=== PATIENT | male | born 1945 | race Caucasian/White ===

== ENCOUNTER 2018-08-09 10:33 | Emergency (ER) | payer MEDICARE, OTHER ==
[2018-08-09] MEDS: TETRACAINE 0.5% OPHTH SOLN 4ML OD (11:24)
[2018-08-09] MEDS ORDERED: FLUORESCEIN OPHTH 1 MG STRIP As Ordered (11:33)
[2018-08-09] MEDS: FLUORESCEIN OPHTH 1 MG STRIP OD (11:34)
== END 2018-08-09 12:25 | disposition home or self-care (01) ==
LOC: M ED 10:33
DX: S05.01XA Injury of conjunctiva and corneal abrasion without foreign body, right eye, initial encounter (principal); X58.XXXA Exposure to other specified factors, initial encounter; Y92.9 Unspecified place or not applicable; Y93.9 Activity, unspecified; Y99.9 Unspecified external cause status; Z79.899 Other long term (current) drug therapy
CPT/HCPCS: 99283

== ENCOUNTER → 2024-08-18 | Outpatient (REF) | payer MEDICARE ==
[~2024-08-18] MED LIST: AMLO1TAB24; ATOR40TA75; ERYTOIN8 OD
[2024-08-18 21:08] LABS: AMORPHOUS SEDIMENT SMALL (NEGATIVE); APPEARANCE, URINE CLOUDY (CLEAR); BACTERIA, URINE AUTO NEGATIVE (NEGATIVE); BILIRUBIN, URINE AUTO NEGATIVE (NEGATIVE); BLOOD, URINE BLOOD NEGATIVE (NEGATIVE); COLOR, URINE YELLOW (YELLOW); GLUCOSE, URINE (UA) AUTO NEGATIVE (NEGATIVE); KETONE, URINE AUTO NEGATIVE (NEGATIVE); LEUKOCYTE ESTERASE, URINE AUTO 3+ (NEGATIVE); MUCUS, URINE SMALL (NEGATIVE); NITRITE, URINE AUTO POSITIVE (NEGATIVE); PROTEIN, URINE AUTO 1+ mg/dL (NEGATIVE); RBC, URINE AUTO 6 /HPF (0-3); SPECIFIC GRAVITY URINE AUTO 1.018 (1.002-1.035); SQUAMOUS EPITHELIAL CELL UR AU 0 /HPF (0-6); UROBILINOGEN, URINE AUTO 0.2 mg/dL (0.0-2.0); WBC, URINE AUTO 97 /HPF (0-3)
== END ==
LOC: M LAB REF 20:30
PROVIDERS: ATTEND Physician Assistant Medical
DX: N39.0 Urinary tract infection, site not specified (principal)

== ENCOUNTER 2025-06-02 10:52 | Emergency (ER) | payer MEDICARE ==
[~2025-06-02] VITALS: Ht 177.8 cm; Wt 81.6 kg
[2025-06-02] MEDS ORDERED: ISOVUE-370 76% 100 ML VIAL As Ordered ONE (11:11)
[2025-06-02 11:23] LABS: BASO # 0.1 10^3/uL (0.0-0.2); BASO % 0.5 % (0.0-1.0); EOS # 0.5 10^3/uL (0.0-0.5); EOS % 3.7 % (0.0-3.0); LYMPH # 0.9 10^3/uL (1.5-5.0); LYMPH % 6.9 % (24.0-44.0); MONO # 1.0 10^3/uL (0.0-0.8); MONO % 7.6 % (2.0-8.0); NEUTROPHILS # 10.5 10^3/uL (1.5-8.5); NEUTROPHILS % 81.0 % (36.0-66.0); PLATELET COUNT, AUTOMATED 152 10^3/uL (150-450)
[2025-06-02 11:37] LABS: INR 0.92
[2025-06-02 11:50] LABS: CALCIUM LEVEL 8.8 MG/DL (8.3-10.6); CARBON DIOXIDE LEVEL 26.0 MMOL/L (20-31); CHLORIDE LEVEL 106.0 MMOL/L (98-107); CK-MB VALUE MASS 1.4 NG/ML (<3.6); CPK CREATINE PHOSPHOKINASE 43.0 U/L (46-171); CREATININE FOR GFR 0.94 MG/DL (0.70-1.30); GLOMERULAR FILTRATION RATE 83.5 (>42); MB/CK RELATIVE INDEX 3.25 (< OR =4); POTASSIUM SERUM 4.0 MMOL/L (3.5-5.1); SODIUM LEVEL 143.0 MMOL/L (136-145)
[2025-06-02] MEDS: niCARdipine IV 40 MG in IV 1 EA IV SCH (11:55)
[2025-06-02] MEDS ORDERED: CEPH500C (12:05)
[2025-06-02] MEDS ORDERED: PANT40TA29 (12:05)
[2025-06-02] MEDS: DESMOPRESSIN ACETATE 24 MCG in NS 50 ML IV ONE (13:53)
[2025-06-02 14:05] VITALS: BP 128/63; TEMP 97.6; O2SAT 96
== END 2025-06-02 14:22 | disposition short-term general hospital (02) ==
LOC: M ED 10:52
DX: I62.01 Nontraumatic acute subdural hemorrhage (principal); I69.222 Dysarthria following other nontraumatic intracranial hemorrhage; R20.2 Paresthesia of skin; I10 Essential (primary) hypertension; E78.5 Hyperlipidemia, unspecified; F10.10 Alcohol abuse, uncomplicated; Z79.02 Long term (current) use of antithrombotics/antiplatelets; Z79.899 Other long term (current) drug therapy; Z79.2 Long term (current) use of antibiotics
CPT/HCPCS: 70450; 70496; 70498; 71045; 80047; 80048; 82550; 82553; 84484; 85025; 85610; 85730; 86850; 86900; 86901; 93005; 93041; 94760; 96365; 96375; 99285; J2597; Q9967